=== PATIENT | male | born 1990 | race Hispanic/Latino ===

== ENCOUNTER 2023-02-24 11:49 | Emergency (ER) | payer OTHER ==
[~2023-02-24] VITALS: Ht 177.8 cm; Wt 90.7 kg
[2023-02-24 12:22] LABS: HEMATOCRIT 45.8 % (42-54); MEAN CORPUSCULAR HGB CONC 33.8 g/dL (32.0-36.0); MEAN CORPUSCULAR VOLUME 88.8 fL (79-99); RED BLOOD CELL COUNT(AUTO) 5.16 MIL/uL (4.50-6.20); RED CELL DISTRIBUTION WIDTH 11.9 % (11.0-15.5); WHITE BLOOD COUNT (AUTO) 8.6 K/uL (4.8-10.8)
[2023-02-24 12:32] LABS: CREATININE 1.2 mg/dL (0.5-1.5); POTASSIUM 3.5 mmol/L (3.5-5.1)
[2023-02-24] MEDS ORDERED: KETOROLAC 30MG VIAL (30MG/ML) IVP ONE (13:00)
[2023-02-24] MEDS: MORPHINE 2 MG SYG IVP ONE ×2 (13:20→13:29)
[2023-02-24] MEDS ORDERED: MANNITOL 25% 50ML VIAL IV SCH ×2 (13:30→14:00)
[2023-02-24] MEDS ORDERED: LEVETIRACETAM 500 MG/5 ML SD VIAL IV ONE (13:30)
[2023-02-24] MEDS ORDERED: LEVETIRACETAM 500 MG/5 ML SD VIAL IV SCH (13:30)
[2023-02-24] MEDS ORDERED: MANNITOL 25% 50ML VIAL IV ONE (14:00)
[2023-02-24 15:00] VITALS: BP 120/74; PULSE 80; RESP 18; O2SAT 98
== END 2023-02-24 15:09 | disposition short-term general hospital (02) ==
LOC: EDH 11:49
DX: S06.6X9A Traumatic subarachnoid hemorrhage with loss of consciousness of unspecified duration, initial encounter (principal); S00.01XA Abrasion of scalp, initial encounter; Z98.890 Other specified postprocedural states; W17.89XA Other fall from one level to another, initial encounter; Y93.89 Activity, other specified; Y92.89 Other specified places as the place of occurrence of the external cause; Y99.8 Other external cause status
CPT/HCPCS: 99285; 70450; 96374; 71045; 96375; 80048; 85027; 36415; 72170; 73030; 72125; J1953; J2270